=== PATIENT | female | born 1950 | race Asian ===

== ENCOUNTER 2020-04-05 17:14 | Inpatient (IN) | payer MEDICARE, MEDICAID ==
[2020-04-05 23:15] VITALS: BP 126/71
[2020-04-05] MEDS ORDERED: Magnesium Hydroxide (MOM) 30 mL UDC PO PRN (23:15)
[2020-04-06] MEDS: Potassium Chloride 20 mEq ER Tab PO SCH (08:59)
[2020-04-06] MEDS ORDERED: Non-Formulary Item 1 EA (Cran/Vitc/Mannose/Fos/Bromeln [Uti-Stat Liquid] 30 ML) PO SCH (09:00)
--- NOTE | 2020-04-06 11:49 | History & Physical ---
ADMIT DATE: 04/05/2020 IDENTIFYING INFORMATION: The patient is a 70-year-old female. JUSTIFICATION FOR ADMISSION: The patient came on a voluntary basis after being cleared by [facility]. She came from [facility], transferred via gurney, accompanied by two medical workers. The patient is admitted because of increasing agitation and hearing voices. The patient has medical history of heart failure, COPD, hypoxemia, abnormalities of gait and mobility, muscle weakness, depression, not sleeping, anxiety. The patient herself is a poor historian. The patient is not sure where she is or why she is here. She believes she is [age] years of age or [age] years of age, unable to tell me her date of . She was able, however, to tell me the date. She was a poor historian. 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 She denies substance abuse. When asked about voices, she was unable to answer. I am not sure if there was a language barrier. She is unpredictable and impulsive. The patient is on wheelchair. The patient was unable to tell me where she is living, who she is living with. PAST PSYCHIATRIC HISTORY: When I asked about prior psychiatric treatment, she was unable to give me any specific answers. The patient denies prior suicide attempt. She was surprised that I was asking that question. Very poor insight, unpredictable, and impulsive. The patient is not currently on any psychotropic medication. MEDICAL HISTORY: Deferred to the medical doctor. She has no known drug allergy. The patient with a history of muscle weakness, COPD, hypoxemia, heart failure, edema, osteoarthritis, unsteady gait. FAMILY AND SOCIAL HISTORY: The patient reports that she is single, never , no children. She said she is from [facility]. Unable to tell me how far she went in schooling she said maybe elementary school; however, she does not seem to be able to give a correct information. Unable to tell me if she has any family around here. MENTAL STATUS EXAMINATION: The patient is appropriately dressed, not very groomed. She was vague in her answers. She believes she is delusional, believes she is [age] years of age. She is not sure why she is in the hospital. She does not know where she is. She is unable to make safe plan for self-care. According to records, she was hallucinating, agitated, unable to make safe plan for self-care. She seems to have average intelligence as she was able to tell me the president of [employer], but ferry terminal agent memory is poor, cannot tell me her age. Short-term is poor, cannot tell me why she is here. She reports she sleeps well, eats well. She denies hearing voices; however, according to the records, she has been psychotic prior to admission. Her insight about her illness is poor. She does not realize what problem she has. Judgment is poor because of psychosis. IMPRESSION: Psychosis, not otherwise specified, rule out schizoaffective disorder versus schizophrenia versus bipolar disorder. MEDICAL DIAGNOSIS: Deferred to the medical doctor. ASSETS: She is cooperative. She seems to be intelligent. NEGATIVE: Poor coping skills, psychotic. PLAN: The patient will be started on Abilify. We will do group therapy, milieu therapy, and individual therapy. We will try to get more information to come up with an appropriate diagnosis and work on plan. ESTIMATED LENGTH OF STAY: 3-7 days. DISCHARGE CRITERIA: Decrease in psychosis and agitation after discharge outpatient. JOB# [id number] CAMERON
--- NOTE | 2020-04-06 17:18 | History & Physical ---
ADMIT DATE: 04/06/2020 CHIEF COMPLAINT: Transfer from [facility] who is medically cleared to the Geropsych Unit. HISTORY OF PRESENT ILLNESS: This is a 70-year-old female who is a resident of [facility], who is medically cleared from [facility]. The patient is now admitted here to the Geropsych Unit. PAST MEDICAL HISTORY: CHF, COPD, psychosis, depression, and osteoarthritis. PAST SURGICAL HISTORY: Unknown. ALLERGIES: No drug allergies. HOME MEDICATIONS: See medication list. REVIEW OF SYSTEMS: GENERAL: Denies any fever or chills. CARDIOVASCULAR: Denies chest pain. RESPIRATORY: Denies shortness of breath. GASTROINTESTINAL: Denies nausea, vomiting, abdominal pain. GENITOURINARY: Denies increased frequency or dysuria. NEUROLOGIC: No headaches, seizures, or syncope. All systems are reviewed and are negative. PHYSICAL EXAMINATION: GENERAL: Elderly female, well developed, well nourished, no apparent distress. VITAL SIGNS: Temperature 98.3, heart rate 71, blood pressure 133/86, respirations 20, and O2 97%. HEENT: Head; normocephalic, atraumatic. NECK: Supple. No mass. LUNGS: Clear bilaterally. ABDOMEN: Soft, nontender. EXTREMITIES: No edema noted. ASSESSMENT: 1. Depression. 2. Psychosis. 3. Congestive heart failure. 4. Chronic obstructive pulmonary disease. 5. Generalized weakness. PLAN: Continue the patient's home medications. Fall precautions will be initiated. We will continue to follow this patient. JOB# [id number]
[2020-04-07] MEDS: Potassium Chloride 20 mEq ER Tab PO SCH (08:17)
--- NOTE | 2020-04-07 09:50 | Internal Medicine Prog Note ---
Internal Medicine Subjective - Subjective Service Date: 04/07/20 Patient seen and examined:: without staff Patient is:: asleep, denies any new complaints, confused Per staff patient has:: no adverse event, no episodes of fall, eating well, unstable gait, tolerating meds Internal Medicine Objective - Results Recent Labs: Laboratory Last Values POC Glucose 98 MG/DL (70 - 105) 04/05/20 22:33 - Physical Exam Vitals and I&O: Vital Signs Temp 97.2 F 04/07/20 06:07 Pulse 77 04/07/20 06:07 Resp 20 04/07/20 06:07 BP 139/57 04/07/20 08:17 Pulse Ox 96 04/07/20 06:07 Intake & Output 04/06/20 04/07/20 04/07/20 18:59 06:59 18:59 Intake Total 900 400 Balance 900 400 Intake: Oral 900 400 Other: # Voids 3 1 # Bowel Movements 0 0 Active Medications: Current Medications Acetaminophen (Tylenol) 650 mg PO Q4H PRN PRN Reason: Pain (Mild 1-3) Stop: 06/04/20 23:14 Furosemide (Lasix) 20 mg PO DAILY [facility] Stop: 06/05/20 08:59 Last Admin: 04/07/20 08:17 Dose: 20 mg Lorazepam (Ativan) 0.5 mg PO Q4HR PRN; Protocol PRN Reason: Anxiety Stop: 05/05/20 23:14 Magnesium Hydroxide (Milk Of Magnesia) 30 ml PO HS PRN PRN Reason: Constipation Potassium Chloride (Klor-Con) 20 meq PO DAILY [facility] Stop: 06/05/20 08:59 Last Admin: 04/07/20 08:17 Dose: 20 meq Zolpidem Tartrate (Ambien) 5 mg PO HS PRN PRN Reason: Insomnia Stop: 06/04/20 23:14 General: weak, NAD HEENT: NC/AT, PERRLA, throat clear Neck: Supple, No JVD Internal Medicine Assmt/Plan - Assessment Assessment: psychosis insomnia congestive heart failure osteoarthritis chronic obstructive pulmonary disease unsteady gait - Plan Plan: fall precaution monitor behavior monitor sleep pattern follow up with psychiatrist
--- NOTE | 2020-04-07 21:03 | Progress Notes ---
DATE: 04/07/2020 IDENTIFYING DATA: A 70-year-old female brought in here on a voluntary basis ____ [facility], came in from [facility] for increased agitation and hearing voices. Today on [id number] evaluation, the patient is a poor historian. She reports I am just here. I am just being guided, whatever they tell me to do, I do. She is oriented to person and place, but unable to elaborate much more beyond that and while she has been hospitalized, at times laughing inappropriately. CURRENT MEDICATIONS: Reconciliation reviewed. Acetaminophen, Lasix, Ativan. We will continue with primary psychiatrist's treatment plan and goals while we obtain more collateral baseline information. JOB# [id number]
[2020-04-08] MEDS: Potassium Chloride 20 mEq ER Tab PO SCH (09:12)
--- NOTE | 2020-04-08 19:11 | Progress Notes ---
DATE: 04/08/2020 SUBJECTIVE: Today on [id number] evaluation, the patient reports that it is very difficult to find a true savior or people trying to kill you. Poor historian, derails at times. ASSESSMENT AND PLAN: Making bizarre statements. We will continue to obtain collateral information as she mostly lives at her home. Per the returning physician, the patient continues to make bizarre statements, very difficult to follow through further collateral, baseline information ____ about her functional status. JOB# [id number]
--- NOTE | 2020-04-08 22:22 | Internal Medicine Prog Note ---
Internal Medicine Subjective - Subjective Patient is:: awake, verbal, denies any new complaints, confused Per staff patient has:: no adverse event, no episodes of fall, eating well, unstable gait, tolerating meds Internal Medicine Objective - Results Recent Labs: Laboratory Last Values POC Glucose 98 MG/DL (70 - 105) 04/05/20 22:33 - Physical Exam Vitals and I&O: Vital Signs Temp 97.6 F 04/08/20 19:54 Pulse 71 04/08/20 19:54 Resp 20 04/08/20 20:00 BP 130/58 04/08/20 19:54 Pulse Ox 98 04/08/20 19:54 Intake & Output 04/08/20 04/08/20 04/09/20 06:59 18:59 06:59 Intake Total 360 1200 560 Balance 360 1200 560 Intake: Oral 360 1080 560 Other 120 Other: # Voids 1 3 1 # Bowel Movements 0 1 Active Medications: Current Medications Acetaminophen (Tylenol) 650 mg PO Q4H PRN PRN Reason: Pain (Mild 1-3) Stop: 06/04/20 23:14 Last Admin: 04/08/20 20:39 Dose: 650 mg Docusate Sodium (Colace) 100 mg PO DAILY [facility] Stop: 06/08/20 08:59 Furosemide (Lasix) 20 mg PO DAILY [facility] Stop: 06/05/20 08:59 Last Admin: 04/08/20 09:05 Dose: Not Given Lorazepam (Ativan) 0.5 mg PO Q4HR PRN; Protocol PRN Reason: Anxiety Stop: 05/05/20 23:14 Magnesium Hydroxide (Milk Of Magnesia) 30 ml PO HS PRN PRN Reason: Constipation Potassium Chloride (Klor-Con) 20 meq PO DAILY [facility] Stop: 06/05/20 08:59 Last Admin: 04/08/20 09:12 Dose: 20 meq Zolpidem Tartrate (Ambien) 5 mg PO HS PRN PRN Reason: Insomnia Stop: 06/04/20 23:14 General: weak, NAD HEENT: NC/AT, PERRLA, throat clear Neck: Supple, No JVD Lungs: other (no acute respiratory distress) Cardiovascular: RRR Abdomen: soft, non-tender Internal Medicine Assmt/Plan - Assessment Assessment: Psychosis Insomnia Congestive heart failure Osteoarthritis Chronic obstructive pulmonary disease Unsteady gait - Plan Plan: Cont current treatment plan Cont to monitor vitals Fall and safety precautions Cont to monitor behavior Psych management
[2020-04-09] MEDS: Potassium Chloride 20 mEq ER Tab PO SCH (08:18)
--- NOTE | 2020-04-09 15:35 | Progress Notes ---
DATE: 04/09/2020 Case was discussed with staff of the patient, reviewed records. The patient continues to be internally preoccupied. Continues to have poor insight in general, continues to be a poor historian. She is sleeping better, eating better, continues to have inappropriate smile , she is laughing inappropriately. No side effects with the medication, no sedation, no nausea, no extrapyramidal symptoms. I am not sure if there is any family involved. I will be adding Abilify to her medication and discussed side effects. We will continue outpatient group therapy, milieu therapy, adjust medication as needed. JOB# [id number] MTDBari
--- NOTE | 2020-04-09 18:35 | Internal Medicine Prog Note ---
Internal Medicine Subjective - Subjective Service Date: 04/09/20 Patient is:: awake, verbal, denies any new complaints, confused Per staff patient has:: no adverse event, no episodes of fall, eating well, unstable gait, tolerating meds Internal Medicine Objective - Results Recent Labs: Laboratory Last Values POC Glucose 98 MG/DL (70 - 105) 04/05/20 22:33 - Physical Exam Vitals and I&O: Vital Signs Temp 97.4 F 04/09/20 14:29 Pulse 73 04/09/20 14:29 Resp 18 04/09/20 14:29 BP 125/54 04/09/20 14:29 Pulse Ox 95 04/09/20 14:29 Intake & Output 04/08/20 04/09/20 04/09/20 18:59 06:59 18:59 Intake Total 1200 720 Balance 1200 720 Intake: Oral 1080 720 Other 120 Other: # Voids 3 2 3 # Bowel Movements 1 1 1 Active Medications: Current Medications Acetaminophen (Tylenol) 650 mg PO Q4H PRN PRN Reason: Pain (Mild 1-3) Stop: 06/04/20 23:14 Last Admin: 04/09/20 08:46 Dose: 650 mg Aripiprazole (Abilify) 2.5 mg PO DAILY [facility]; Protocol Stop: 06/09/20 08:59 Docusate Sodium (Colace) 100 mg PO DAILY [facility] Stop: 06/08/20 08:59 Last Admin: 04/09/20 08:23 Dose: 100 mg Furosemide (Lasix) 20 mg PO DAILY [facility] Stop: 06/05/20 08:59 Last Admin: 04/09/20 08:18 Dose: 20 mg Lorazepam (Ativan) 0.5 mg PO Q4HR PRN; Protocol PRN Reason: Anxiety Stop: 05/05/20 23:14 Magnesium Hydroxide (Milk Of Magnesia) 30 ml PO HS PRN PRN Reason: Constipation Potassium Chloride (Klor-Con) 20 meq PO DAILY [facility] Stop: 06/05/20 08:59 Last Admin: 04/09/20 08:18 Dose: 20 meq Zolpidem Tartrate (Ambien) 5 mg PO HS PRN PRN Reason: Insomnia Stop: 06/04/20 23:14 General: weak, NAD HEENT: NC/AT, PERRLA, throat clear Neck: Supple, No JVD Lungs: other (no acute respiratory distress) Cardiovascular: RRR Abdomen: soft, non-tender
[2020-04-10] MEDS: Potassium Chloride 20 mEq ER Tab PO SCH (08:54)
--- NOTE | 2020-04-10 10:54 | Internal Medicine Prog Note ---
Internal Medicine Subjective - Subjective Service Date: 04/10/20 Patient is:: awake, verbal, denies any new complaints, confused Per staff patient has:: no adverse event, no episodes of fall, eating well, unstable gait, tolerating meds Internal Medicine Objective - Results Recent Labs: Laboratory Last Values POC Glucose 98 MG/DL (70 - 105) 04/05/20 22:33 - Physical Exam Vitals and I&O: Vital Signs Temp 97.3 F 04/10/20 05:31 Pulse 72 04/10/20 05:31 Resp 16 04/10/20 07:55 BP 155/50 04/10/20 08:53 Pulse Ox 99 04/10/20 05:31 Intake & Output 04/09/20 04/10/20 04/10/20 18:59 06:59 18:59 Intake Total 240 Balance 240 Intake: Oral 240 Other: # Voids 3 2 # Bowel Movements 1 Active Medications: Current Medications Acetaminophen (Tylenol) 650 mg PO Q4H PRN PRN Reason: Pain (Mild 1-3) Stop: 06/04/20 23:14 Last Admin: 04/10/20 10:17 Dose: 650 mg Aripiprazole (Abilify) 2.5 mg PO DAILY [facility]; Protocol Stop: 06/09/20 08:59 Last Admin: 04/10/20 08:53 Dose: 2.5 mg Docusate Sodium (Colace) 100 mg PO DAILY [facility] Stop: 06/08/20 08:59 Last Admin: 04/10/20 08:54 Dose: 100 mg Furosemide (Lasix) 20 mg PO DAILY [facility] Stop: 06/05/20 08:59 Last Admin: 04/10/20 08:53 Dose: 20 mg Lorazepam (Ativan) 0.5 mg PO Q4HR PRN; Protocol PRN Reason: Anxiety Stop: 05/05/20 23:14 Magnesium Hydroxide (Milk Of Magnesia) 30 ml PO HS PRN PRN Reason: Constipation Potassium Chloride (Klor-Con) 20 meq PO DAILY [facility] Stop: 06/05/20 08:59 Last Admin: 04/10/20 08:54 Dose: 20 meq Zolpidem Tartrate (Ambien) 5 mg PO HS PRN PRN Reason: Insomnia Stop: 06/04/20 23:14 General: weak, NAD HEENT: NC/AT, PERRLA, throat clear Neck: Supple, No JVD Lungs: other (no acute respiratory distress) Cardiovascular: RRR Abdomen: soft, non-tender Internal Medicine Assmt/Plan - Assessment Assessment: Psychosis Insomnia Congestive heart failure Osteoarthritis Chronic obstructive pulmonary disease Unsteady gait - Plan Plan: Cont current treatment plan Cont to monitor vitals Fall and safety precautions Cont to monitor behavior Psych management
[2020-04-10] MEDS: Sulfamethoxazole/TMP 800/160mg Tab PO SCH (17:04)
--- NOTE | 2020-04-10 19:46 | Progress Notes ---
DATE: 04/10/2020 Case was discussed with staff of the patient, reviewed records. The patient continues to isolate herself. Continues to have poor insight in general, sometimes she is being angry, sometimes she reports she cannot understand this, continues to be somewhat confused. She has unstable gait. She has been compliant with the medication with no side effects, no sedation, no nausea, no extrapyramidal symptoms. Continues to have inappropriate affect. Unable to state a safe plan for self-care. She tolerated the Abilify with no side effects and no sedation, no nausea, no extrapyramidal symptoms. We will continue to work with the patient in group therapy, milieu therapy, and adjust the medications as needed. JOB# [id number]
[2020-04-11] MEDS: Sulfamethoxazole/TMP 800/160mg Tab PO SCH ×2 (08:58→16:36)
[2020-04-11] MEDS: Fish Oil 1,000 MG SGL PO SCH (08:58)
[2020-04-11] MEDS: Potassium Chloride 20 mEq ER Tab PO SCH (08:58)
--- NOTE | 2020-04-11 16:09 | Progress Notes ---
DATE: 04/11/2020 SUBJECTIVE: Case was discussed with staff of the patient, reviewed records. The patient has been compliant with her medications and following direction. She is sleeping better, eating better, continues to be however, somewhat confused; however, she is not acting out. She continues however, to be internally preoccupied. Continues to be unable to make safe plan for self-care, not sure if she has any family. No side effects with the medication, no sedation, no nausea, no extrapyramidal symptoms. We will continue outpatient group therapy, milieu therapy, adjust medication as needed. JOB# [id number]
[2020-04-12] MEDS: Potassium Chloride 20 mEq ER Tab PO SCH (08:54)
[2020-04-12] MEDS: Sulfamethoxazole/TMP 800/160mg Tab PO SCH ×2 (08:54→16:27)
[2020-04-12] MEDS: Fish Oil 1,000 MG SGL PO SCH (08:54)
--- NOTE | 2020-04-12 22:09 | Progress Notes ---
DATE: 04/12/2020 Case was discussed with staff of the patient, reviewed records. The patient has been refusing Abilify, but she is sleeping well, eating well. No acting out behavior. Continues to be unable to explain why she was admitted here, she said she has no family, no brothers, no sisters, no , no cousins nothing. She says she avoids being with anybody she came from a nursing facility and she is not acting anyway dangerous. She seems to be improving in general. We will continue to work with the patient in group therapy, milieu therapy, and adjust the medication as needed. JOB# [id number]
[2020-04-13] MEDS: Fish Oil 1,000 MG SGL PO SCH (10:07)
[2020-04-13] MEDS: Sulfamethoxazole/TMP 800/160mg Tab PO SCH ×2 (10:08→17:39)
[2020-04-13] MEDS: Potassium Chloride 20 mEq ER Tab PO SCH (10:08)
--- NOTE | 2020-04-13 19:58 | Progress Notes ---
DATE: 04/13/2020 Case was discussed with staff of the patient, reviewed records. We are trying to call the nursing facility where she came from just to get more information on her, though today she was speaking very good Palestinian. She did tell me that she has no family here; however, I found out that on the face sheet that she has a brother by the name of Sid Alba and I called him and left a message to call me as I wanted to get more information from him to justify and clarify her diagnosis. She also left a name for a friend by the name of Anabelle Anjali. I called her either, could not even leave her a message. I called the number that we have on her face sheet, but nobody answered, anyway some time to see if we can get more information. I am reluctant to initiate reise on her because she is not acting in anyway dangerous, sleeping well. She is eating well. She has a lot of complaints about the food here. She is not taking the medication and I do want a refill, so I get further information on her and the patient came from [facility]. Apparently, her brother has a power of obstetrics tech on her according to the records and the patient did sign voluntary and we will continue to work with the patient in group therapy, milieu therapy, and adjust the medication as needed. JOB# [id number] CAMERON
--- NOTE | 2020-04-13 20:22 | Progress Notes ---
DATE: 04/13/2020 I managed to talk to Delicia, who is one of the care givers at [place], where the patient was residing. She reported the patient was acting paranoid. She refused to do the Covid-19 test swab and she believed that they were trying to give her the virus that she has some cognitive disabilities and that she does have a psychiatrist that she sees, but she is not on any medication. The patient reported that in general the patient is manageable and that they were willing to take her back as long as she is not acting out. The patient actually refused to do Covid-19 test, while she is here. When we tried, the patient isolated herself in her room, but no acting out behavior. I am not sure like with these criteria she will be okay to release and we will continue outpatient group therapy, milieu therapy, and adjust medications as needed. JOB# [id number] MTDBari
[2020-04-14] MEDS: Potassium Chloride 20 mEq ER Tab PO SCH (08:45)
[2020-04-14] MEDS: Fish Oil 1,000 MG SGL PO SCH (08:45)
[2020-04-14] MEDS: Sulfamethoxazole/TMP 800/160mg Tab PO SCH ×2 (08:45→16:56)
--- NOTE | 2020-04-14 22:50 | Psych Progress Note ---
Psych Progress Note - Intro Date of Progress Note: 04/14/20 - Assessment Assessment: patient interviewed, case discussed with staff, chart and records were reviewed. patient apparently was paranoid at her previous nursing facility. here she has been calmer, pleasant, confused. she repeats her statements. very fixated on race. epsiodes of mood swings. needs redirection, needs prompting for self care. - Vitals, I&O Vitals: Vital Signs - 24 hr 04/14/20 04/14/20 04/14/20 05:56 08:00 08:45 Temp 97.0 F HR 70 RR 18 16 BP 137/51 137/51 O2 Sat % 94 04/14/20 04/14/20 14:00 20:14 Temp 97.6 F 97.3 F HR 76 75 RR 18 20 BP 127/52 108/51 O2 Sat % 98 97 - Objective Psych General Appearance: Report: No acute distress Psych Behavior: Report: Alert, Restless Psych Speech: Report: Mumbled Psych Mood: Report: Labile Psych Affect: Report: Anxious Psych Thought Process: Report: Paranoid, Thought Block Psych Cognition: Report: Confused Psych Insight: Report: Impaired Psych Judgement: Report: Impaired - Plan Plan: cont current treatment plan, encouraged groups. - Review of Relevant Data Review of Relevant Data: I have reviewed the following items and time amanuel (where applicable) has been applied. - Medications Current Medications: Current Medications Acetaminophen (Tylenol) 650 mg PO Q4H PRN PRN Reason: Pain (Mild 1-3) Stop: 06/04/20 23:14 Last Admin: 04/14/20 09:36 Dose: 650 mg Aripiprazole (Abilify) 2.5 mg PO DAILY [facility]; Protocol Stop: 06/09/20 08:59 Last Admin: 04/14/20 08:46 Dose: Not Given Docusate Sodium (Colace) 100 mg PO DAILY [facility] Stop: 06/08/20 08:59 Last Admin: 04/14/20 08:46 Dose: 100 mg Fish Oil (Premium 3) 1,000 mg PO DAILY [facility] Stop: 06/10/20 08:59 Last Admin: 04/14/20 08:45 Dose: 1,000 mg Furosemide (Lasix) 20 mg PO DAILY [facility] Stop: 06/05/20 08:59 Last Admin: 04/14/20 08:45 Dose: 20 mg Magnesium Hydroxide (Milk Of Magnesia) 30 ml PO HS PRN PRN Reason: Constipation Potassium Chloride (Klor-Con) 20 meq PO DAILY [facility] Stop: 06/05/20 08:59 Last Admin: 04/14/20 08:45 Dose: 20 meq Trimethoprim/Sulfamethoxazole (Bactrim Ds) 1 tab PO BID [facility] Stop: 04/15/20 16:59 Last Admin: 04/14/20 16:56 Dose: 1 tab
[2020-04-15] MEDS: Potassium Chloride 20 mEq ER Tab PO SCH (09:04)
[2020-04-15] MEDS: Sulfamethoxazole/TMP 800/160mg Tab PO SCH (09:04)
[2020-04-15] MEDS: Fish Oil 1,000 MG SGL PO SCH (09:05)
--- NOTE | 2020-04-15 18:26 | Internal Medicine Prog Note ---
Internal Medicine Subjective - Subjective Patient is:: awake, verbal, denies any new complaints, confused Per staff patient has:: no adverse event, no episodes of fall, eating well, unstable gait, tolerating meds Internal Medicine Objective - Results Recent Labs: Laboratory Last Values POC Glucose 98 MG/DL (70 - 105) 04/05/20 22:33 - Physical Exam Vitals and I&O: Vital Signs Temp 98.2 F 04/15/20 14:00 Pulse 76 04/15/20 14:00 Resp 18 04/15/20 14:00 BP 115/56 04/15/20 14:00 Pulse Ox 96 04/15/20 14:00 Intake & Output 04/14/20 04/15/20 04/15/20 18:59 06:59 18:59 Intake Total 1000 480 Balance 1000 480 Intake: Oral 1000 480 Other: # Voids 4 1 # Bowel Movements 1 Active Medications: Current Medications Acetaminophen (Tylenol) 650 mg PO Q4H PRN PRN Reason: Pain (Mild 1-3) Stop: 06/04/20 23:14 Last Admin: 04/15/20 09:15 Dose: 650 mg Aripiprazole (Abilify) 2.5 mg PO DAILY [facility]; Protocol Stop: 06/09/20 08:59 Last Admin: 04/15/20 09:06 Dose: Not Given Docusate Sodium (Colace) 100 mg PO DAILY [facility] Stop: 06/08/20 08:59 Last Admin: 04/15/20 09:04 Dose: 100 mg Fish Oil ([place] 3) 1,000 mg PO DAILY [facility] Stop: 06/10/20 08:59 Last Admin: 04/15/20 09:05 Dose: 1,000 mg Furosemide (Lasix) 20 mg PO DAILY [facility] Stop: 06/05/20 08:59 Last Admin: 04/15/20 09:05 Dose: 20 mg Magnesium Hydroxide (Milk Of Magnesia) 30 ml PO HS PRN PRN Reason: Constipation Potassium Chloride (Klor-Con) 20 meq PO DAILY [facility] Stop: 06/05/20 08:59 Last Admin: 04/15/20 09:04 Dose: 20 meq General: weak, NAD HEENT: NC/AT, PERRLA, throat clear Neck: Supple, No JVD Lungs: other (no acute respiratory distress) Cardiovascular: RRR Abdomen: soft, non-tender Internal Medicine Assmt/Plan - Assessment Assessment: Psychosis Insomnia Congestive heart failure Osteoarthritis Chronic obstructive pulmonary disease Unsteady gait - Plan Plan: Cont current treatment plan Cont to monitor vitals Fall and safety precautions Cont to monitor behavior Psych management Nutritional Asmnt/Malnutr-PDOC - Dietary Evaluation Malnutrition Findings (Please click <Entered> for more info): Nutritional Asmnt/Malnutrition Start: 04/10/20 15: 14 Text: Status: Complete Freq: Protocol: Document 04/10/20 15:14 YNES (Rec: 04/10/20 15:17 YNES [id number]) Nutritional Asmnt/Malnutrition Patient General Information Nutritional Screening Moderate Risk Diagnosis Psychosis Pertinent Medical Hx/Surgical Hx CHF, COPD, Psychosis, Depression, Osteoarthritis Subjective Information Pt is a 70-year-old male admitted on 04/05 d/t increased agitation and hearing voices. Pt is eating an estimated 85% of meals since admit date (x4 days) Per Meal/Nutrition Activity Record. Dietary is currently providing an estimated 2100 kcals and 100 gm Pro, per Pt PO intake this is providing an estimated 1785 kcals and 85gm Pro to meet 100+% kcal and 100+% Pro needs . Anthropometrics HT: 52 WT: 121 LB (55 kg) BMI: 22.13 (normal) GI/ Skin Integrity GI: WNL, Soft, Non-tender, Flat BM: 04/09 x2 I/O: 240/Not Noted Skin: WNL, Intact Norbert: 22 Diet Order: Na 2gm Estimated Energy Needs: ( Geriatric, CBW) 2677-5399 kcals (25-30 kcals/ kg) 55-65g Pro (1.0-1.2 g/kg) 8620-7800 ml (25-30 ml/kg) Current Diet Order/ Nutrition Support Na 2gm Pertinent Medications Colace, Lasix, MOM (PRN), Klor -con Pertinent Labs 04/05: POC Glucose 98 Nutritional Hx/Data Height 5 ft 2 in Height (Calculated Centimeters) 157.5 Current Weight (lbs) 121 lb Weight (Calculated Kilograms) 54.9 Weight (Calculated Grams) 52158.7 [place] Body Weight 118 LB (53.64 kg) % [place] Body Weight 103 Body Mass Index (BMI) 22.1 Weight Status Approriate GI Symptoms Skin Integrity/Comment: Skin: WNL, Intact Norbert: 22 Current %PO Good (75-100%) Estimated Nutritional Goals BEE in Kcals: Using Current wt Calories/Kcals/Kg 25-30 Kcals Calculated 9112-7274 Protein: Using Current wt Protein g/k.0-1.2 Protein Calculated 55-65 Fluid: ml 2115-5502 ml (25-30 ml/kg) Nutritional Problem No current Nutrition Prob Problem No nutrition diagnosis at this time. Etiology N/A Signs/Symptoms: N/A Malnutrition Related to Morbid Obesity Malnutrition related to morbid obesity No Intervention/Recommendation Comments Continue Na 2gm diet as tolerated. Expected Outcomes/Goals Expected Outcomes/Goals 1.PO intake to continue to meet >75% of estimated nutritional needs. 2.Monitor PO intake, wt, nutrition related labs, and skin integrity. 3.F/U as low risk in 7-10 days , 04/17-04/20.
--- NOTE | 2020-04-15 22:33 | Psych Progress Note ---
Psych Progress Note - Intro Date of Progress Note: 04/15/20 - Assessment Assessment: patient interviewed, case discussed with staff, chart and records were reviewed. patient has been calm. less visible today, withdrawn in her room. no agitation noted. no side effects to meds noted. needs prompting for self care. - Vitals, I&O Vitals: Vital Signs - 24 hr 04/15/20 04/15/20 04/15/20 06:08 06:15 07:40 Temp 97.5 F HR 66 75 RR 18 15 16 BP 161/60 138/75 O2 Sat % 98 95 04/15/20 04/15/20 04/15/20 09:05 14:00 20:28 Temp 98.2 F 97.9 F HR 76 74 RR 18 20 BP 138/75 115/56 116/45 O2 Sat % 96 97 - Objective Psych General Appearance: Report: No acute distress Psych Behavior: Report: Alert, Restless Psych Speech: Report: Mumbled Psych Mood: Report: Labile Psych Affect: Report: Anxious Psych Thought Process: Report: Paranoid, Thought Block Psych Cognition: Report: Confused Psych Insight: Report: Impaired Psych Judgement: Report: Impaired - Plan Plan: cont current treatment plan, encouraged groups. - Review of Relevant Data Review of Relevant Data: I have reviewed the following items and time amanuel (where applicable) has been applied. - Medications Current Medications: Current Medications Acetaminophen (Tylenol) 650 mg PO Q4H PRN PRN Reason: Pain (Mild 1-3) Stop: 06/04/20 23:14 Last Admin: 04/15/20 09:15 Dose: 650 mg Aripiprazole (Abilify) 2.5 mg PO DAILY [facility]; Protocol Stop: 06/09/20 08:59 Last Admin: 04/15/20 09:06 Dose: Not Given Docusate Sodium (Colace) 100 mg PO DAILY [facility] Stop: 06/08/20 08:59 Last Admin: 04/15/20 09:04 Dose: 100 mg Fish Oil ([place] 3) 1,000 mg PO DAILY [facility] Stop: 06/10/20 08:59 Last Admin: 04/15/20 09:05 Dose: 1,000 mg Furosemide (Lasix) 20 mg PO DAILY [facility] Stop: 06/05/20 08:59 Last Admin: 04/15/20 09:05 Dose: 20 mg Magnesium Hydroxide (Milk Of Magnesia) 30 ml PO HS PRN PRN Reason: Constipation Potassium Chloride (Klor-Con) 20 meq PO DAILY [facility] Stop: 06/05/20 08:59 Last Admin: 04/15/20 09:04 Dose: 20 meq
[2020-04-16] MEDS: Potassium Chloride 20 mEq ER Tab PO SCH (08:47)
[2020-04-16] MEDS: Fish Oil 1,000 MG SGL PO SCH (08:47)
--- NOTE | 2020-04-17 02:20 | Progress Notes ---
DATE: 04/16/2020 Case was discussed with staff of the patient, reviewed records. The patient continues to have poor insight. She is selective about her medication, does not believe she needs to be on medications. She is cognitively impaired. She is calm, in general, not very much visible on the unit, stays in her room. She denies any current intent to harm herself or anyone. She denies any auditory or visual hallucination or paranoia. She has no clue about why she came in here. Working on discharge plan and continues to be a very good historian. We will continue the patient in group therapy, milieu therapy, and adjust medications as needed. JOB# [id number] [facility]
[2020-04-17] MEDS: Potassium Chloride 20 mEq ER Tab PO SCH (08:45)
[2020-04-17] MEDS: Fish Oil 1,000 MG SGL PO SCH (08:45)
--- NOTE | 2020-04-17 12:44 | Discharge Summary ---
DATE OF DISCHARGE: 04/17/2020 IDENTIFYING INFORMATION: The patient is a 70-year-old female. HISTORY OF PRESENT ILLNESS: The patient was admitted after being cleared by [facility]. She came from [facility] and transferred via gurney. The patient was admitted because of increased agitation and hearing voices. The patient has a medical history of heart failure, COPD, hypoxemia. She has gait. The patient has been depressed, not sure why she was here. She believes this is 2002 or she is 2003 in age and that is 2012. Unable to tell me her date of . She was able, however, to tell me the date of that day. She was a poor historian. She denies substance abuse. The patient was unable to answer questions_ though later, the patient was able to speak Nepali very good. She reports she has no family, nothing; found out later that her brother has a power of associate attorney and I left a message. COURSE IN THE HOSPITAL: I tried to call their family. I called the long term where she was and they said that generally she is doing well except that, the day she was admitted that she started acting strangely, but she does have a psychiatrist and she is not on any medications. Diagnosed with cognitive disorder, not otherwise specified. The patient has not been hospitalized before. Also, I had prescribed Abilify. She refused to take it. However, the patient was not acting out in anyway dangerous. She was sleeping well, eating well, so we can feel the need to reach her as she was not doing well without taking her medication. She talked to the nursing facility and they feel they could take her back and take care of her in their facility. The patient is sleeping well, eating well. She became oriented to place, person, time, and situation and she was able to tell me the date, she could be discharged to a lesser level of care. CONDITION ON DISCHARGE: The patient is able to take care for herself, able to function. She is more sociable now taking care of her ADLs and functioning well. FINAL DIAGNOSES: Psychosis, not otherwise specified, cognitive disorder, not otherwise specified, rule out dementia. MEDICAL DIAGNOSIS: Deferred to the medical doctor. The patient will follow up with psychiatrist, primary care physician and therapist. EXPECTED OUTCOME: Stable, if the patient complies with the above. JOB# [id number] [facility]
== END 2020-04-17 05:05 | DRG 885 ==
LOC: GERO 21:25
PROVIDERS: ADMIT Psychiatry & Neurology Psychiatry; ATTEND Psychiatry & Neurology Psychiatry
DX: F29 Unspecified psychosis not due to a substance or known physiological condition (principal); F32.9 Major depressive disorder, single episode, unspecified; I50.9 Heart failure, unspecified; M19.90 Unspecified osteoarthritis, unspecified site; J44.9 Chronic obstructive pulmonary disease, unspecified; G47.00 Insomnia, unspecified; R26.81 Unsteadiness on feet; F03.90 Unspecified dementia, unspecified severity, without behavioral disturbance, psychotic disturbance, mood disturbance, and anxiety; Z79.899 Other long term (current) drug therapy; Z79.51 Long term (current) use of inhaled steroids
CPT/HCPCS: 82948-90; 83036-90; G0410; Z7610